=== PATIENT | male | born 1955 ===

== ENCOUNTER 2018-08-23 01:05 | Emergency (ER) | payer SELFPAY ==
[2018-08-23 01:11] VITALS: BP 133/64; PULSE 94; RESP 18; TEMP 98; O2SAT 98
--- NOTE | 2018-08-23 01:28 | ED PDOC ---
HPI: Psych/Substance Abuse Time Seen by Provider: 08/23/18 01:10 Chief Complaint (Nursing): Alcohol Ingestion Chief Complaint (Provider): Alcohol Intoxication ED Caveat: Intoxicated, Uncooperative History Per: EMS History/Exam Limitations: intoxication Onset/Duration Of Symptoms: Mins (prior to arrival) Current Symptoms Are (Timing): Still Present Additional Complaint(s): 62 year old male presents to the ED via EMS for public intoxication. Patient was found prior to arrival and brought in, agitated and not answering questions appropriately which limits further history and ROS. PMD: unobtainable Past Medical History Reviewed: Unable To Obtain Vital Signs: Last Vital Signs Temp 98.0 F 08/23/18 01:09 Pulse 94 H 08/23/18 01:09 Resp 18 08/23/18 01:09 BP 133/64 08/23/18 01:09 Pulse Ox 98 08/23/18 01:09 Primary Care Provider: FAMILY PROVIDER,NO - Family History Family History: States: Unknown Family Hx - Allergies Allergies/Adverse Reactions: Allergies Allergy/AdvReac Type Severity Reaction Status Date / Time No Known Allergies Allergy Verified 08/23/18 01:11 Review of Systems Review Of Systems: ROS cannot be obtained secondary to pt's inabilty to answer questions. Physical Exam - Reviewed Nursing Documentation Reviewed: Yes Vital Signs Reviewed: Yes - Physical Exam Appears: Positive for: No Acute Distress (but intoxicated appearing and agitated) Head Exam: Positive for: ATRAUMATIC, NORMOCEPHALIC Eye Exam: Positive for: Normal appearance ENT: Positive for: Normal ENT Inspection Cardiovascular/Chest: Positive for: Regular Rate, Rhythm Respiratory: Positive for: Normal Breath Sounds. Negative for: Respiratory Distress Neurological/Psych: Positive for: Awake, Alert, Mood/Affect (agitated, uncooperative), Gait (unsteady), Other (speech slurred). Negative for: Oriented - Laboratory Results Result Diagrams: 08/23/18 02:34 08/23/18 02:34 - ECG O2 Sat by Pulse Oximetry: 98 (RA) Pulse Ox Interpretation: Normal Medical Decision Making Medical Decision Making: Time: 111 Initial Impression: 63 year old intoxicated male with alcohol induced delirium Initial Plan: --Alcohol serum --CMP --Drug screen --CBC with differential --1:1 observation --Accucheck --Reevaluation 0215 Patient resting comfortably in NAD 0320 Patient continues to be resting comfortably in NAD. 0430 Patient clinically sober and stable for discharge at this time, being aaox3 with a steady gait and coherent speech. Diagnosis of alcohol abuse. Scribe Attestation: Documented by Ellie Andrews, acting as a scribe for Mynor Graf MD. Provider Scribe Attestation: All medical record entries made by the Scribe were at my direction and personally dictated by me. I have reviewed the chart and agree that the record accurately reflects my personal performance of the history, physical exam, medical decision making, and the department course for this patient. I have also personally directed, reviewed, and agree with the discharge instructions and disposition. Disposition - Clinical Impression Clinical Impression: Alcohol abuse with intoxication - Disposition Disposition: Routine/Home Disposition Time: 04:34 Condition: STABLE Instructions: Alcohol Use - When Is Drinking a Problem? Forms: [employer] (South Korean) Print Language: UPPER SORBIAN
[2018-08-23 02:43] LABS: BASO # 0.1 K/uL (0.0-0.2); BASO % 0.8 % (0.0-2.0); EOS % 14.5 % (0.0-4.0); HEMOGLOBIN 12.8 g/dL (12.0-18.0); LYMPH # 3.1 K/uL (1.0-4.3); LYMPH % 46.2 % (20.0-40.0); MEAN CELL VOLUME 90.9 fl (80.0-94.0); MEAN CORPUSCULAR HEMOGLOBIN 29.8 pg (27.0-31.0); MEAN CORPUSCULAR HGB CONC 32.8 g/dL (33.0-37.0); MEAN PLATELET VOLUME 8.6 fl (7.2-11.7); MONO # 0.5 K/uL (0.0-0.8); MONO % 7.5 % (0.0-10.0); NEUT # 2.1 K/uL (1.8-7.0); RBC 4.29 Mil/uL (4.40-5.90); RED CELL DISTRIBUTION WIDTH 13.3 % (11.5-14.5); WHITE BLOOD COUNT 6.7 K/uL (4.8-10.8)
[2018-08-23 02:49] LABS: ALB/GLOB RATIO 1.2 (1.0-2.1); ALT/SGPT 27 U/L (21-72); AST/SGOT 26 U/L (17-59); BLOOD UREA NITROGEN 13 mg/dl (9-20); CALCIUM 8.4 mg/dL (8.4-10.2); GFR NON-AFRICAN AMERICAN > 60
== END 2018-08-23 06:10 | disposition home or self-care (01) ==
LOC: H.ER 01:05 → EDBD 01:05 → H.ER 06:10
DX: F10.129 Alcohol abuse with intoxication, unspecified (principal)
CPT/HCPCS: 80053; 82948; 85025; 99283; G0480